=== PATIENT | male | born 1950 | race Caucasian/White ===

== ENCOUNTER 2016-06-06 17:37 | Emergency (ER) | payer MEDICAID ==
[~2016-06-06] VITALS: Wt 80.0 kg
[~2016-06-06 17:37] MED LIST: BEN25 PO; CLIN-73 PO; IBUP-1542 PO
--- NOTE | 2016-06-06 18:27 | ERD ---
ER Documentation Chief Complaint Date/Time DATE: 06/06/16 TIME: 18:15 Chief Complaint BACK PAIN SINCE LAST NIGHT HPI 66 y/o male presents to ED for right upper back pain that started last night. Pain was described as achy nonradiating with a pain rate of 8/10 on range of motion.. Denies headache, loss of consciousness, dizziness, blurry vision, changes in vision, photophobia, facial pain, ear pain, throat pain, difficulty swallowing, neck pain, shoulder pain, chest pain, cough, hemoptysis, abdominal pain, loss of appetite, nausea, vomiting, hematochezia, diarrhea, constipation, urinary symptoms, bladder and bowel incontinences, extremity weakness, extremity tenderness, numbness or tingling sensation, difficulty walking, trauma, recent travel, recent exposure to illness, recent antibiotic use in the last 3 months, fever, chills. Allergy: Penicillin PMH: Denies. Family medical history: Denies. Medications: Denies. Surgery: Right knee surgery. 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 Denies smoking, use of alcohol, use of illegal drugs. ROS All systems reviewed and are negative except as per history of present illness. Medications Home Meds Active Scripts Cyclobenzaprine Hcl* (Cyclobenzaprine Hcl*) 10 Mg Tablet, 10 MG PO BID Y for PAIN, #15 TAB Prov:MILEY MANN 06/06/16 Ibuprofen* (Motrin*) 600 Mg Tab, 600 MG PO Q6, #30 TAB Prov:DON FORTE NP 04/08/15 Diphenhydramine Hcl* (Benadryl*) 25 Mg Cap, 25 MG PO Q6 Y for ITCHING, #14 CAP Prov:HARSH CAMPBELL M. 02/09/15 Ibuprofen* (Motrin*) 600 Mg Tab, 600 MG PO Q6, #30 TAB Prov:NATHALY TERRELL PA-C 01/18/15 Clindamycin Hcl* (Clindamycin Hcl*) 300 Mg Capsule, 300 MG PO QID for 7 Days, CAP Prov:HARSH CAMPBELL. 11/24/14 Allergies Allergies: Coded Allergies: Penicillins (Verified Allergy, Unknown, 04/08/15) Uncoded Allergies: PCN (Allergy, Unknown, HIVES, RASH, 07/16/14) PMhx/Soc History of Surgery: Yes (right knee surgery) Anesthesia Reaction: No Hx Neurological Disorder: No Hx Respiratory Disorders: No Hx Cardiac Disorders: No Hx Psychiatric Problems: No Hx Miscellaneous Medical Probl: No Hx Alcohol Use: No Hx Substance Use: No Hx Tobacco Use: No Smoking Status: Never smoker Physical Exam Vitals Vital Signs Date Time Temp Pulse Resp B/P Pulse Ox O2 Delivery O2 Flow Rate FiO2 06/06/16 17:42 98.0 82 18 149/69 99 Physical Exam CONSTITUTIONAL: Well-appearing; well-nourished; in no apparent distress.~ HEAD: Normocephalic; atraumatic.~ No visible or palpable masses. EYES: Conjunctiva clear, sclera non-icteric, EOM intact. PERRL Ears: Hearing intact. EACs clear, TMs non-bulging, non-inflamed, translucent & mobile, ossicles normal appearance, No obstructions, no erythema, no discharges Nose: No obstructions. No polyps. No external lesions. Mucosa non-inflamed. No external lesions, septum and turbinates normal. No rhinorrhea. No discharges. Frontal sinus is non-tender to palpation. Maxillary sinus is non-tenderness to palpation. MOUTH: Moist mucous membranes, no lesion, no obstructions, no vesicles, no thrush TEETH: No obvious carries or periodontal diseases. No gingival inflammation, lesions, bleeding, discharge. Throat: Uvula in midline. Right tonsil is +2 with no erythema, no exudate. Left tonsil is +2 with no erythema, no exudate. Tolerating secretions well. Good gag reflex. Neck: Supple, without lesions, bruits, or adenopathy. No mass. Thyroid non- enlarged and non-tender to palpation. CHEST: Symmetrical chest. Respirations even and not labored. No retractions noted. CARDIOVASCULAR: Normal S1, S2. RRR. No murmurs, gallops. RESPIRATORY: Normal chest excursion with respiration; breath sounds clear and equal bilaterally; no wheezes, rhonchi, or rales. Breathing even and unlabored. Speaking in clear, full, and complete sentences w/ ease. ABDOMEN: Normal bowel sounds normal. Soft, round, non-distended, non-guarding, no tenderness, no rebound, no organomegaly, no masses, no pulsating abdominal mass. No hernia. No peritoneal signs. : NO CVA Tenderness. BACK: Symmetrical shoulder. Spine is midline without deformity, tenderness. No evidence of trauma or deformity. PELVIS: Stable pelvis. No evidence of trauma or deformity.~ MUSCULOSKELETAL: Normal gait and station. No misalignment, asymmetry, crepitation, defects, tenderness, masses, effusions, decreased range of motion, instability, atrophy or abnormal strength or tone in the head, neck, spine, ribs , pelvis or extremities except mild supraspinatus tenderness right upper back on palpation. Reproducing pain on the right upper during range of motion of spine and then shoulder. No calf tenderness. NEUROVASCULAR: Distal pulses are present. Pedal pulse are present, equal, and normal. Cap refills are < 2 seconds. NEUROLOGIC: Alert and oriented x4. Speaks full and clear sentences. Cranial Nerves II-XII normal. Sensation to pain, touch, and proprioception normal. Grossly unremarkable. No neurologic deficits. Romberg test is negative. PSYCHOLOGICAL: The patients mood and manner are appropriate. No hallucinations , delusions. Not SI. Not HI. Has the capacity to decide for himself/herself. SKIN: Normal for age and ethnicity; warm; dry; good turgor; no apparent lesions or exudates. No rashes, hives, discoloration. Intact. Procedures/MDM Examination: Mild supraspinatus tenderness on palpation to right upper back area. Reproducing right upper back pain on spinal range of motion and right shoulder range of motion. Patient and family member agreed with the plan of care and medical management. EKG: Normal sinus rhythm with ventricular rate of 70 bpm. No signs of acute myocardial infarction. Repeat EKG was done: Normal sinus rhythm with a ventricular rate rate of 70 bpm. No signs of acute myocardial infarction. Case and medical management was discussed with supervising physician, Dr. Avni Fan who agreed with my present treatment and after care. Medical decision makin66 y/o male presents to ED for right upper back pain that started last night. Pain was described as achy nonradiating with a pain rate of 8/10 on range of motion. Patient's complaint, patient's history, my physical findings, diagnostic test results are consistent with my final diagnosis of musculoskeletal pain. Medications prescribed are the following: Flexeril. Patient and family member are made aware of the side effects of and adverse reactions of the medications prescribed. Instructed on when to seek emergent and medical attention in case allergic/anaphylactic reactions or severe side effects and or adverse reactions to medications. Patient and family member verbalized understanding. Patient instructed Instructed to follow-up with his PCP in 24 hours. Instructed to Call 911 for chest pain, shortness of breath. Advised to come back here in ED as soon as possible for severity of symptoms which includes but not limited to: any new symptoms; shortness of breath/difficulty of breathing; cardiovascular changes; severe gastrointestinal symptoms; signs and symptoms of bleeding and or infection; signs of compartment syndrome/neurovascular changes; neurological changes/deficits. Patient and family member verbalized understanding. Upon discharge, patient is alert and oriented x 4, patient speaks full and clear sentences, patient denies pain, patient has no neurological deficits, patient has no neurovascular deficits. No difficulty of breathing. Lung sounds are clear to auscultation. Not in distress. Appears comfortable. Not in distress. Appears satisfied with care provided here in ED. Departure Diagnosis: Primary Impression: Back pain Back pain location: back pain in other location Chronicity: unspecified Qualified Code: M54.89 - Other back pain, unspecified chronicity Condition: Good Additional Instructions: Follow-up with PCP in the next 24-48 hours. MILEY MANN Jun 06, 2016 18:27 neurological changes/deficits. Patient and family member verbalized understanding. Upon discharge, patient is alert and oriented x 4, patient speaks full and clear sentences, patient denies pain, patient has no neurological deficits, patient has no neurovascular deficits. No difficulty of breathing. Lung sounds are clear to auscultation. Not in distress. Appears comfortable. Not in distress. Appears satisfied with care provided here in ED. MILEY MANN Jun 06, 2016 18:27
[2016-06-06] MEDS ORDERED: CYCL-319 PO (19:02)
[2016-06-06 19:25] VITALS: BP 130/88; PULSE 71; RESP 17; TEMP 98.9
== END 2016-06-06 19:25 | disposition home or self-care (01) ==
LOC: FTE 17:37
DX: M54.89 Other dorsalgia (principal)
CPT/HCPCS: 93005; Z7502

== ENCOUNTER 2016-06-19 01:20 | Emergency (ER) | payer MEDICAID ==
[~2016-06-19] VITALS: Ht 182.9 cm; Wt 79.0 kg
[~2016-06-19 01:20] MED LIST changes: +CYCL-319 PO
[2016-06-19 01:30] VITALS: Ht 182.9 cm; Wt 79.0 kg
[2016-06-19] MEDS ORDERED: ACETAMINOPHEN 500 MG TAB PO STA (02:25)
[2016-06-19] MEDS ORDERED: LIDOCAINE 2% VISC 15 ML CUP PO ONE (02:30)
[2016-06-19] MEDS ORDERED: TYL500 PO (02:56)
[2016-06-19] MEDS ORDERED: OSLT75C PO (02:56)
[2016-06-19] MEDS ORDERED: D-ME473S18 PO (02:56)
[2016-06-19] MEDS ORDERED: NAPR-260 PO (02:57)
--- NOTE | 2016-06-19 03:23 | ERD ---
ER Documentation Chief Complaint Date/Time DATE: 06/19/16 TIME: 03:21 Chief Complaint sore throat x 2 days HPI This is a 66-year-old male that presents to the ER with headache, sore throat, cough and loss of voice since last night. Patient denies any chest pain or shortness of breath. His cough is dry and constant. He is mostly concerned about the loss of his voice. Patient does not have any fevers or chills. ROS 12 point review of systems was done, all negative except per HPI. Medications Home Meds Active Scripts Naproxen* (Naprosyn*) 500 Mg Tablet, 500 MG PO BID Y for PAIN AND/OR INFLAMMATION, #30 TAB Prov:ANTIONE MONK 06/19/16 Dextromethorphan Hb-Promethazine Hcl (Promethazine DM Syrup) 473 Ml Syrup, 10 ML PO Q6H Y for COUGH, #4 OZ Prov:ANTIONE MONK 06/19/16 Oseltamivir Phosphate* (Tamiflu*) 75 Mg Capsule, 75 MG PO BID for 5 Days, CAP Prov:ANTIONE MONK 06/19/16 Acetaminophen* (Tylenol*) 500 Mg Tab, 1000 MG PO Q8H Y for PAIN AND OR ELEVATED TEMP for 3 Days, TAB Prov:ANTIONE MONK 06/19/16 Cyclobenzaprine Hcl* (Cyclobenzaprine Hcl*) 10 Mg Tablet, 10 MG PO BID Y for PAIN, #15 TAB Prov:MILEY MANN 06/06/16 Ibuprofen* (Motrin*) 600 Mg Tab, 600 MG PO Q6, #30 TAB Prov:DON FORTE NP 04/08/15 Diphenhydramine Hcl* (Benadryl*) 25 Mg Cap, 25 MG PO Q6 Y for ITCHING, #14 CAP Prov:HARSH CAMPBELL 02/09/15 Ibuprofen* (Motrin*) 600 Mg Tab, 600 MG PO Q6, #30 TAB Prov:NATHALY TERRELL PA-C 01/18/15 Clindamycin Hcl* (Clindamycin Hcl*) 300 Mg Capsule, 300 MG PO QID for 7 Days, CAP Prov:HARSH CAMPBELL 11/24/14 Allergies Allergies: Coded Allergies: Penicillins (Verified Allergy, Unknown, 04/08/15) Uncoded Allergies: PCN (Allergy, Unknown, HIVES, RASH, 07/16/14) PMhx/Soc Medical and Surgical Hx: pt denies Medical Hx, pt denies Surgical Hx History of Surgery: No Anesthesia Reaction: No Hx Neurological Disorder: No Hx Respiratory Disorders: No Hx Cardiac Disorders: No Hx Psychiatric Problems: No Hx Miscellaneous Medical Probl: No Hx Alcohol Use: No Hx Substance Use: No Hx Tobacco Use: No Physical Exam Vitals Vital Signs Date Time Temp Pulse Resp B/P Pulse Ox O2 Delivery O2 Flow Rate FiO2 06/19/16 01:30 97.8 80 20 116/61 100 Physical Exam GENERAL: The patient is well-developed, well-nourished, in no acute distress. NECK: Cervical spine is non tender with no step off. Supple, no nuchal rigidity HEENT: Atraumatic. Pupils equal, round and reactive to light. Extraocular muscles are grossly intact. Conjunctivae pink, no discharge. Bilateral tympanic membranes are clear with no evidence of erythema, effusion or dulling of the light reflex. Tonsilar erythema with no exudates or uvular deviation. Clear rhinorrhea. RESPIRATORY: Clear to auscultation bilaterally. There are no rales, wheezes or rhonchi. HEART: Regular rate and rhythm. No murmurs, clicks, rubs or gallops. EXTREMITIES: No clubbing or cyanosis. Full range of motion. Grossly neurovascularly intact. NEUROLOGIC: Alert and oriented. Cranial nerves II through XII are intact. SKIN: There is no rash. The skin is warm and dry. Results 24 hrs Current Medications Medications (Trade) Dose Ordered Sig/Petty Route PRN Reason Start Time Stop Time Status Last Admin Dose Admin Lidocaine (Xylocaine (Viscous)) 15 ml ONCE ONCE PO 06/19/16 02:30 06/19/16 02:31 DC 06/19/16 02:33 Acetaminophen (Tylenol Tab) 1,000 mg ONCE STAT PO 06/19/16 02:25 06/19/16 02:26 DC 06/19/16 02:33 Procedures/MDM Differential diagnosis includes but is not limited to; Viral URI, allergic rhinitis, bronchitis, pertussis,pneumonia. This is likely viral in etiology. Clinical suspicion for pneumonia is low as patient appears well, is not hypoxic or in any respiratory distress. Additionally, patients physical examination is benign. Plan was discussed with patient they understand and agree. Patient needs to follow up with PCP in 1-2 days or return to ER sooner if symptoms worsen. Departure Diagnosis: Primary Impression: Laryngitis Condition: Stable Patient Instructions: Laryngitis Additional Instructions: Llame al doctor MAANA y giancarlo sowmya LING PARA DENTRO DE 1-2 BARRAZA.Dgale a la secretaria que nosotros le instruimos hacer esta ling.Avise o llame si santiago condicin se empeora antes de la ling. Regresa aqui si peor o no mejor. ANTIONE MONK Jun 19, 2016 03:23
== END 2016-06-19 03:04 | disposition home or self-care (01) ==
LOC: FTE 01:20
DX: J04.0 Acute laryngitis (principal)
CPT/HCPCS: Z7610 ×2; 99284

== ENCOUNTER 2016-06-23 01:04 | Emergency (ER) | payer MEDICAID ==
[~2016-06-23] VITALS: Ht 175.3 cm; Wt 80.0 kg
[~2016-06-23 01:04] MED LIST changes: +D-ME473S18 PO; +NAPR-260 PO; +OSLT75C PO; +TYL500 PO
[2016-06-23 01:10] VITALS: Ht 175.3 cm; Wt 80.0 kg
--- NOTE | 2016-06-23 03:34 | ERD ---
ER Documentation Chief Complaint Date/Time DATE: 06/23/16 TIME: 03:33 Chief Complaint Cough sore throat x 5 days HPI 66-year-old male presents here in emergency department for complaints of cough and sore throat for 5 days. Patient has been having runny nose nasal congestion. Patient does not have any shortness breath or wheezing. Patient denies any chest pain. Patient took [id number] medications without mild relief. Patient denies any leg swelling. Patient denies any sick contacts. ROS All systems reviewed and are negative except as per history of present illness. Medications Home Meds Active Scripts Naproxen* (Naprosyn*) 500 Mg Tablet, 500 MG PO BID Y for PAIN AND/OR INFLAMMATION, #30 TAB Prov:ANTIONE MONK 06/19/16 Dextromethorphan Hb-Promethazine Hcl (Promethazine DM Syrup) 473 Ml Syrup, 10 ML PO Q6H Y for COUGH, #4 OZ Prov:ANTIONE MONK 06/19/16 Oseltamivir Phosphate* (Tamiflu*) 75 Mg Capsule, 75 MG PO BID for 5 Days, CAP Prov:ANTIONE MONK 06/19/16 Acetaminophen* (Tylenol*) 500 Mg Tab, 1000 MG PO Q8H Y for PAIN AND OR ELEVATED TEMP for 3 Days, TAB Prov:ANTIONE MONK 06/19/16 Cyclobenzaprine Hcl* (Cyclobenzaprine Hcl*) 10 Mg Tablet, 10 MG PO BID Y for PAIN, #15 TAB Prov:MILEY MANN 06/06/16 Ibuprofen* (Motrin*) 600 Mg Tab, 600 MG PO Q6, #30 TAB Prov:DON FORTE NP 04/08/15 Diphenhydramine Hcl* (Benadryl*) 25 Mg Cap, 25 MG PO Q6 Y for ITCHING, #14 CAP Prov:HARSH CAMPBELL 02/09/15 Ibuprofen* (Motrin*) 600 Mg Tab, 600 MG PO Q6, #30 TAB Prov:NATHALY TERRELL PA-C 01/18/15 Clindamycin Hcl* (Clindamycin Hcl*) 300 Mg Capsule, 300 MG PO QID for 7 Days, CAP Prov:HARSH CAMPBELL 11/24/14 Allergies Allergies: Coded Allergies: Penicillins (Verified Allergy, Unknown, 06/23/16) Uncoded Allergies: PCN (Allergy, Unknown, HIVES, RASH, 07/16/14) PMhx/Soc Medical and Surgical Hx: pt denies Medical Hx History of Surgery: Yes (right knee surgery) Anesthesia Reaction: No Hx Neurological Disorder: No Hx Respiratory Disorders: No Hx Cardiac Disorders: No Hx Psychiatric Problems: No Hx Miscellaneous Medical Probl: No Hx Alcohol Use: No Hx Substance Use: No Hx Tobacco Use: No Smoking Status: Never smoker FmHx Family History: No coronary disease, No diabetes, No other Physical Exam Vitals Vital Signs Date Time Temp Pulse Resp B/P Pulse Ox O2 Delivery O2 Flow Rate FiO2 06/23/16 01:10 97.7 87 20 137/64 97 Physical Exam GENERAL: The patient is well developed and appropriate for usual state of health, in no apparent distress. CHEST: Clear to auscultation bilaterally. There are no rales, wheezes or rhonchi. HEART: Regular rate and rhythm. No murmurs, clicks, rubs or gallops. No S3 or S4. ABDOMEN: Soft, nontender and nondistended. Good bowel sounds. No rebound or guarding. No gross peritonitis. No gross organomegaly or masses. No Nixon sign or McBurney point tenderness. BACK: No midline or flank tenderness. EXTREMITIES: Equal pulses bilaterally. There is no peripheral clubbing, cyanosis or edema. No focal swelling or erythema. Full range of motion. Grossly neurovascularly intact. NEURO: Alert and oriented. Cranial nerves 2-12 intact. Motor strength in all 4 extremities with 5/5 strength. Sensation grossly intact. Normal speech and gait. SKIN: There is no apparent rash or petechia. The skin is warm and dry. HEMATOLOGIC AND LYMPHATIC: There is no evidence of excessive bruising or lymphedema. No gross cervical, axillary, or inguinal lymphadenopathy. Results 24 hrs PROCEDURE: Chest. CLINICAL INDICATION: Cough. TECHNIQUE: Single frontal view of the chest was obtained. COMPARISON: None. FINDINGS: The cardiac silhouette is within normal limits. The aortic arch is unremarkable. There is no focal consolidation, vascular congestion or pleural effusion. There is no pneumothorax. IMPRESSION: No evidence for active cardiopulmonary disease. .Otis Valenzuela MD, MD Date Time Electronically viewed and signed by .Otis Valenzuela MD, MD on 06/23/2016 03:45 .T/ CC: MIKALA SNOWDEN CLINICAL DOCUMENTATION SPECIALIST Procedures/MDM Medical Decision Making: Patient symptoms are most likely consistent with acute bronchitis, which viral in origin. There is low suspicion for Pneumonia at this time since patients lungs sounds are clear, patient O2 saturation is normal and patient doesnt show any respiratory distress. Patients chest xray doesnt show infiltrates or any other cardiopulmonary emergencies at this time. There is low suspicion for other cardiopulmonary emergencies at this time such as CHF, Pulmonary Embolism, Pneumothorax, or any other cardiopulmonary emergencies at this time. There is low suspicion for sepsis. Patient appears well and is hemodynamically stable. Fever is controlled with medicines. Disposition: Home. Condition: Stable Prescriptions: Guaifenesin with codeine albuterol, Zyrtec, ibuprofen Instructions: Patient is advised to take medications as prescribed. Patient is advised to rest. Patient advised to increase fluid intake, do humidifier at home and if possible, do salt water gargles. Patient is advised that if symptoms are worse, shortness of breath, uncontrolled fever, stridor, vomiting, worst signs and symptoms to return to emergency department immediately. Otherwise, patient is advised to follow up with primary doctor in 5-7 days. Departure Diagnosis: Primary Impression: Acute bronchitis Bronchitis organism: unspecified organism Qualified Code: J20.9 - Acute bronchitis, unspecified organism Condition: Stable Patient Instructions: Bronchitis, No Antibiotic (Adult) Additional Instructions: Patient is advised to take medications as prescribed. Patient is advised to rest. Patient advised to increase fluid intake, do humidifier at home and if possible, do salt water gargles. Patient is advised that if symptoms are worse, shortness of breath, uncontrolled fever, stridor, vomiting, worst signs and symptoms to return to emergency department immediately. Otherwise, patient is advised to follow up with primary doctor in 5-7 days. MIKALA SNOWDEN NP Jun 23, 2016 03:34
--- NOTE | 2016-06-23 03:46 | RADRPT ---
PROCEDURE: Chest. CLINICAL INDICATION: Cough. TECHNIQUE: Single frontal view of the chest was obtained. COMPARISON: None. FINDINGS: The cardiac silhouette is within normal limits. The aortic arch is unremarkable. There is no focal consolidation, vascular congestion or pleural effusion. There is no pneumothorax. IMPRESSION: No evidence for active cardiopulmonary disease. .Otis Valenzuela MD, Date Time Electronically viewed and signed by .Otis Valenzuela MD, on 06/23/2016 03:45 .T/
[2016-06-23] MEDS ORDERED: IBUP400T22 PO (04:06)
[2016-06-23] MEDS ORDERED: GUAI473L22 PO (04:06)
[2016-06-23] MEDS ORDERED: CETI10CA PO (04:06)
[2016-06-23] MEDS ORDERED: ALBU8.5H3 INH (04:06)
[2016-06-23 04:34] VITALS: PULSE 100; RESP 20
== END 2016-06-23 04:35 | disposition home or self-care (01) ==
LOC: FTE 01:04
DX: J20.9 Acute bronchitis, unspecified (principal)
CPT/HCPCS: 71010; Z7502

== ENCOUNTER 2016-07-08 13:47 | Emergency (ER) | payer MEDICAID ==
[~2016-07-08] VITALS: Ht 165.1 cm; Wt 77.0 kg
[~2016-07-08 13:47] MED LIST changes: +ALBU8.5H3 INH; +CETI10CA PO; +GUAI473L22 PO; +IBUP400T22 PO
[2016-07-08 13:51] VITALS: Ht 165.1 cm; Wt 77.0 kg
[2016-07-08 16:24] LABS: ADD UMIC YES; URINE BILIRUBIN (Dip) NEGATIVE (NEGATIVE); URINE BLOOD (Dip) 1+ (NEGATIVE); URINE COLOR LT. YELLOW (YELLOW); URINE GLUCOSE (Dip) NEGATIVE (NEGATIVE); URINE KETONES (Dip) NEGATIVE (NEGATIVE); URINE LEUKOCYTE ESTERASE (Dip) NEGATIVE (NEGATIVE); URINE NITRITE (Dip) NEGATIVE (NEGATIVE); URINE TOTAL PROTEIN (Dip) NEGATIVE (NEGATIVE); URINE UROBILINOGEN (Dip) 0.2 E.U./dL (0.1-1.0)
[2016-07-08 16:32] LABS: ADD SCAN DIFF NO
[2016-07-08 16:35] LABS: BASOPHILS % 0.3 % (0.0-2.0); EOSINOPHILS # 0.4 10^3/ul (0.0-0.5); EOSINOPHILS % 4.9 % (0.0-7.0); HEMATOCRIT 34.2 % (42.0-52.0); HEMOGLOBIN 11.9 g/dl (14.0-18.0); LYMPHOCYTES # 1.5 10^3/ul (0.8-2.9); LYMPHOCYTES % 20.9 % (15.0-51.0); MEAN CORPUSCULAR HEMOGLOBIN 28.5 pg (29.0-33.0); MEAN CORPUSCULAR HGB CONC 34.8 g/dl (32.0-37.0); MEAN CORPUSCULAR VOLUME 81.8 fl (82.0-101.0); MEAN PLATELET VOLUME 9.4 fl (7.4-10.4); MONOCYTE # 0.8 10^3/ul (0.3-0.9); MONOCYTES % 11.1 % (0.0-11.0); NEUTROPHIL # 4.5 10^3/ul (1.6-7.5); NEUTROPHILS % 62.5 % (39.0-77.0); PLATELET COUNT 312 10^3/UL (140-415); RED BLOOD COUNT 4.18 10^6/ul (4.70-6.10); RED CELL DISTRIBUTION WIDTH 13.3 % (11.5-14.5); WHITE BLOOD COUNT 7.2 10^3/ul (4.8-10.8)
[2016-07-08 16:45] LABS: ALBUMIN 3.5 g/dl (3.3-4.9); POTASSIUM 3.9 mmol/L (3.5-5.1)
[2016-07-08 16:47] LABS: BILIRUBIN,INDIRECT 0.3 mg/dl (0-1.1); BILIRUBIN,TOTAL 0.3 mg/dl (0.2-1.3); CREATININE 0.77 mg/dl (0.61-1.24)
[2016-07-08 16:48] LABS: ALBUMIN/GLOBULIN RATIO 1.16; CALCIUM 8.6 mg/dl (8.4-10.2); TOTAL PROTEIN 6.5 g/dl (6.1-8.1)
[2016-07-08 16:48] LABS: BACTERIA,URINE FEW; URINE RBCS 0-2 /HPF (0)
[2016-07-08] MEDS ORDERED: IBUP-1542 PO (17:07)
[2016-07-08] MEDS ORDERED: CLOT30CR24 TOP (17:08)
[2016-07-08] MEDS ORDERED: TERB250T46 PO (17:08)
--- NOTE | 2016-07-08 17:14 | ERD ---
ER Documentation Chief Complaint Date/Time DATE: 07/08/16 TIME: 17:12 Chief Complaint lita ankle swelling since yesterday HPI This is a 66-year-old male presents to the ER with bilateral ankle swelling. Patient states he noticed this 2 days ago. Patient states he has been sitting down for a long period. Patient denies any redness to his calves he denies any swelling to his calves. He denies any shortness of breath. Patient denies any trauma. He denies any fevers or chills. He denies any numbness or tingling. Patient does complain of severe toenail fungus which he has been trying to get rid of for over a year. ROS 12 point review of systems was done, all negative except per HPI. Medications Home Meds Active Scripts Clotrimazole* (Clotrimazole* AF) 1% - 30 Gm Cream.gm., 1 APPLIC TOP BID for 7 Days, TUB Prov:ANTIONE MONK 07/08/16 Terbinafine* (Lamisil*) 250 Mg Tablet, 250 MG PO QHS for 30 Days, TAB Prov:ANTIONE MONK 07/08/16 Ibuprofen* (Motrin*) 600 Mg Tab, 600 MG PO Q6, #30 TAB Prov:ANTIONE MONK 07/08/16 Ibuprofen* (Motrin*) 400 Mg Tab, 400 MG PO Q6H Y for PAIN AND OR ELEVATED TEMP, #30 TAB Prov:MIKALA SNOWDEN NP 06/23/16 Cetirizine Hcl* (Zyrtec*) 10 Mg Capsule, 10 MG PO DAILY, #30 TAB.CHEW Prov:MIKALA SNOWDEN NP 06/23/16 Guaifenesin-Codeine Phosphate* (Guaifenesin* AC Cough Syrup) 473 Ml Liquid, 5 ML PO Q4H Y for COUGH, #120 ML Prov:MIKALA SNOWDEN NP 06/23/16 Albuterol Sulfate* (Proair HFA*) 8.5 Gm Hfa.aer.ad, 2 PUFF INH Q4H Y for WHEEZING AND SOB, #1 INHALER Prov:MIKALA SNOWDEN NP 06/23/16 Naproxen* (Naprosyn*) 500 Mg Tablet, 500 MG PO BID Y for PAIN AND/OR INFLAMMATION, #30 TAB Prov:ALESHIABANGANTIONE C 06/19/16 Dextromethorphan Hb-Promethazine Hcl (Promethazine DM Syrup) 473 Ml Syrup, 10 ML PO Q6H Y for COUGH, #4 OZ Prov:ALESHIAANTIONE DALY 06/19/16 Oseltamivir Phosphate* (Tamiflu*) 75 Mg Capsule, 75 MG PO BID for 5 Days, CAP Prov:ALESHIAANTIONE DALY 06/19/16 Acetaminophen* (Tylenol*) 500 Mg Tab, 1000 MG PO Q8H Y for PAIN AND OR ELEVATED TEMP for 3 Days, TAB Prov:ANTIONE MONK 06/19/16 Cyclobenzaprine Hcl* (Cyclobenzaprine Hcl*) 10 Mg Tablet, 10 MG PO BID Y for PAIN, #15 TAB Prov:MILEY MANN 06/06/16 Ibuprofen* (Motrin*) 600 Mg Tab, 600 MG PO Q6, #30 TAB Prov:DON FORTE NP 04/08/15 Diphenhydramine Hcl* (Benadryl*) 25 Mg Cap, 25 MG PO Q6 Y for ITCHING, #14 CAP Prov:HARSH CAMPBELL 02/09/15 Ibuprofen* (Motrin*) 600 Mg Tab, 600 MG PO Q6, #30 TAB Prov:NATHALY TERRELL PA-C 01/18/15 Clindamycin Hcl* (Clindamycin Hcl*) 300 Mg Capsule, 300 MG PO QID for 7 Days, CAP Prov:HARSH CAMPBELL 11/24/14 Allergies Allergies: Coded Allergies: Penicillins (Verified Allergy, Unknown, 06/23/16) Uncoded Allergies: PCN (Allergy, Unknown, HIVES, RASH, 07/16/14) PMhx/Soc History of Surgery: Yes (right knee surgery) Anesthesia Reaction: No Hx Neurological Disorder: No Hx Respiratory Disorders: No Hx Cardiac Disorders: No Hx Psychiatric Problems: No Hx Miscellaneous Medical Probl: No Hx Alcohol Use: No Hx Substance Use: No Hx Tobacco Use: No Smoking Status: Never smoker Physical Exam Vitals Vital Signs Date Time Temp Pulse Resp B/P Pulse Ox O2 Delivery O2 Flow Rate FiO2 07/08/16 13:51 98.1 77 18 123/73 99 Physical Exam GENERAL: The patient is well developed and appropriate for usual state of health , in no apparent distress. HEENT: Atraumatic. CHEST: Clear to auscultation bilaterally. There are no rales, wheezes or rhonchi. HEART: Regular rate and rhythm. No murmurs, clicks, rubs or gallops. EXTREMITIES: Patient has bilateral ankle swelling. No redness. No calf swelling or redness. Neurovascularly intact. Full range of motion of his bilateral ankles. No deformities. NEURO: Alert and oriented. SKIN: There is no apparent rash or petechia. The skin is warm and dry. Result Diagram: 07/08/16 1625 07/08/16 1625 Results 24 hrs Laboratory Tests Test 07/08/16 16:03 07/08/16 16:25 Urine Color LT. YELLOW Urine Clarity CLEAR Urine pH 6.0 Urine Specific [place] 1.015 Urine Ketones NEGATIVE Urine Nitrite NEGATIVE Urine Bilirubin NEGATIVE Urine Urobilinogen 0.2 E.U./dL Urine Leukocyte Esterase NEGATIVE Urine Microscopic RBC 0-2/HPF Urine Microscopic WBC NONE SEEN/HPF Urine Epithelial Cells OCCASIONAL Urine Bacteria FEW Urine Hemoglobin 1+ Urine Glucose NEGATIVE% Urine Total Protein NEGATIVE White Blood Count 7.210^3/ul Red Blood Count 4.1810^6/ul Hemoglobin 11.9g/dl Hematocrit 34.2% Mean Corpuscular Volume 81.8fl Mean Corpuscular Hemoglobin 28.5pg Mean Corpuscular Hemoglobin Concent 34.8g/dl Red Cell Distribution Width 13.3% Platelet Count 67859^3/UL Mean Platelet Volume 9.4fl Neutrophils % 62.5% Lymphocytes % 20.9% Monocytes % 11.1% Eosinophils % 4.9% Basophils % 0.3% Nucleated Red Blood Cells % 0.0/100WBC Neutrophils # 4.510^3/ul Lymphocytes # 1.510^3/ul Monocytes # 0.810^3/ul Eosinophils # 0.410^3/ul Basophils # 0.010^3/ul Nucleated Red Blood Cells # 0.010^3/ul Sodium Level 141mmol/L Potassium Level 3.9mmol/L Chloride Level 103mmol/L Carbon Dioxide Level 30mmol/L Anion Gap 12 Blood Urea Nitrogen 14mg/dl Creatinine 0.77mg/dl Glucose Level 78mg/dl Calcium Level 8.6mg/dl Total Bilirubin 0.3mg/dl Direct Bilirubin 0.00mg/dl Indirect Bilirubin 0.3mg/dl Aspartate Amino Transf (AST/SGOT) 25IU/L Alanine Aminotransferase (ALT/SGPT) 36IU/L Alkaline Phosphatase 112IU/L Total Protein 6.5g/dl Albumin 3.5g/dl Globulin 3.00g/dl Albumin/Globulin Ratio 1.16 Procedures/MDM This is a 66-year-old male presents to the ER with bilateral ankle swelling. This is likely dependent edema. Suspicion for kidney failure is low. Suspicion for DVT is low. Patient has swelling bilaterally on the ankles, there is no evidence of calf swelling or redness. Patient will be sent home with Lamisil. His liver function tests were completely normal. Patient will also be sent home with clotrimazole with ibuprofen. Patient was told to elevate his legs. He needs to follow-up with his primary care doctor within 1- 2 days or return to ER sooner if symptoms worsen. My medical decision making was shared with the patient he understands and agrees with plan. Departure Diagnosis: Primary Impression: Nail fungus Additional Impression: Edema Condition: Stable Patient Instructions: Peripheral Edema, Bilateral Additional Instructions: Llame al doctor [place]ING[place] y giancarlo sowmya LING PARA DENTRO DE 1-2 BARRAZA.Dgale a la secretaria que nosotros le instruimos hacer esta ling.Avise o llame si santiago condicin se empeora antes de la ling. Regresa aqui si peor o no mejor. ANTIONE MONK Jul 08, 2016 17:14
[2016-07-08 17:30] VITALS: BP 129/77; PULSE 72; RESP 18; TEMP 97.8
== END 2016-07-08 17:30 | disposition home or self-care (01) ==
LOC: FTE 13:47
DX: B35.1 Tinea unguium (principal); R60.0 Localized edema
CPT/HCPCS: 80053; 81001; 81003; 85025; 99283